=== PATIENT | female | born 1990 | race Caucasian/White ===

== ENCOUNTER 2024-08-04 12:59 | Outpatient (CLI) | payer BC, SELFPAY | END 2024-08-04 13:00 | disposition home or self-care (01) | PROVIDERS: PCP Family Medicine | DX: R10.9 Unspecified abdominal pain (principal) | CPT/HCPCS: 83690 ==

== ENCOUNTER 2025-01-03 16:09 | Emergency (ER) | payer BC, SELFPAY ==
--- OUTSIDE RECORDS SUMMARY | 2025-01-03 16:11 | XMS_ITS | Clinical Summary ---
Author Organization [facility] Address [address] [place] [address] Care Team Providers Care Securities Teller Name Role Phone Elsewhere, Pcp Primary Care Provider Unavailabl e Source Comments Patient records contain information from all sites at [facility]. For routine questions regarding patient records, call [phone] during business hours, M-F 8:00 AM - 5:00 PM Central Time. Record requests for emergency care only can be directed to [phone] at any time.[facility] Allergies Active Allergy Reactions Criticality Noted Date Comments Latex Hives (Reselect Reaction),Itching,Oth er (see comments),Rash High 08/29/2009 Prednisone Rash 07/31/2024 Pollen Extracts Other (see comments) 03/10/2017 SEASONAL ALLERGIES: RUNNY NOSE, ITCHY EYES Sulfa (Sulfonamide Antibiotics) Hives (Reselect Reaction),Rash High 03/10/2017 All SULFA DRUGS Medications * This document contains information received from the source organization and may not represent a complete record from that organization. amitriptyline (ELAVIL) 25 mg tablet Take 25 mg by mouth. 7 Active miscellaneous medical supply misc As directed. Automated home blood pressure cuff. 1 Active sertraline (Zoloft) 50 mg tablet Take 50 mg by mouth. 4 Active LORazepam (Ativan) 0.5 mg tablet Take 1 tablet (0.5 mg total) by mouth 3 (three) times a day as needed for anxiety for up to 10 days. 12 tablet 4 Active L.acid/B.animal is,bifidum/FOS (PROBIOTIC COMPLEX ORAL) daily. Active ibuprofen 200 mg tablet Take 400-800 mg by mouth every 6 (six) hours as needed. 4 Active acetaminophen (TylenoL) 325 mg tablet Take 325-650 mg by mouth every 4 (four) hours as needed. 4 Active drospirenone-et hinyl estradioL (Ocella) 3-0.03 mg per tablet Take 1 tablet by mouth daily. 4 Active Active Problems Problem Noted Date Diagnosed Date Infection Upper Respiratory 09/12/2024 Encounter For Supervision Of Normal Unspecified Trimester 08/10/2020 Overview (08/23/2020): Estimated Date of Delivery: 03/15/21 Patient's last menstrual period was 05/30/2020 (exact date). Last Tdap- 03/15/2013 Last Flu vaccine- 06/19/2020 Glucose (GTT) result- too early Allergies Allergen Reactions Latex Contact Dermatitis Sulfa (Sulfonamide Antibiotics) Hives OB History Para Term AB Living 1 0 0 0 0 0 SAB TAB Ectopic Multiple Live Births 0 0 0 0 0 # Outcome Date GA Lbr David/2nd Weight Sex Delivery Anes PTL Lv 1 Current Create lab flowsheet for OB labs- Component Latest Ref Rng & Units 07/24/2020 07/24/2020 07/24/2020 11:34 AM 11:34 AM 11:34 AM ANTIBODY SCREEN Negative Negative SPECIMEN EXPIRATION DATE/TIME 07/27/20 23:59 HEMOGLOBIN 12.0 - 16.0 g/dL 13.4 MCV 80 - 100 fL 92 PLATELET COUNT 140 - 440 thou/cu mm 194 MPV 6.5 - 11.0 fL 10.4 RUBELLA IGG ANTIBODY Positive 3.56 HEMOGLOBIN A1C SCREENING <=6.4 % 4.9 ABORH B Rh Positive HBSAG Nonreactive Nonreactive HEPATITIS C ANTIBODY Non-Reactive Non-Reactive HIV-1/HIV-2 ANTIBODY Non-Reactive Non-Reactive TREPONEMA PALLIDUM Negative Negative Past Medical History: . Date Seasonal allergies Past Surgical History: . Laterality Date WISDOM TEETH EXTRACTION No data on file. Problems (from 07/24/20 to present) No problems associated with this episode. Kailee Lamb RN.....08/10/2020 2:57 PM Migraine Headache 03/10/2017 Overview (08/23/2020): Improved on amitriptyline. Created by Conversion Replacement Utility updated for latest IMO load Created by Conversion Replacement Utility updated for latest IMO load Overview: Improved on amitriptyline. Family History Of Diseases O f The Skin And Subcutaneous Tissue 03/10/2017 Overview (08/23/2020): Father, diagnosed 2012 Irritable Bowel Syndrome With Constipation 03/10 Overview (08/23/2020): Created by Conversion Created by Conversion Immunizations Immunization Administration Dates Next Due 4vHPV (discontinued) 03/15/2013,06/29/2009,04/10 DTP 12/11/1995, 1,02/04/1991,1990 HepA Adult 01/21/2015 HepA Pediatric/Adolescent 04/10/2009 HepB, Unspecified 04/30/2003,01/28/2003,11/19/19 03 IPV 12/11/1995 Influenza, Unspecified 08/24/2015,06/25/2013,11/2011 MCV4 (Menactra)(Discontinued) 04/10/2009 MCV4, Unspecified 04/10/2009 MMR 11/18/2002,04/22/1992 MPSV4 02/07/2011 OPV 12/11/1995, 2,02/04/1991,1990 Td Preservative Free (TENIVA C, DECAVAC) 11/18/2002 Tdap 03/15/2013 influenza vaccine quad (FLUZONE/FLUARIX) (6 months and older)(PF) 06/26/2023 Family History Medical History Relation Name Comments Lupus Father Relation Name Status Comments Father Social History Tobacco Use Types Packs/Day Years Used Date Smoking Tobacco: Never Smokeless Tobacco: Never [employer] Utilities Answer Date Recorded In the past 12 months has th e QRGL, gas, oil, or water [employer] threatened to shut off services in your home? No 07/29/2024 Exercise Vital Sign Answer Date Recorde d On average, how many days pe r week do you engage in moderate to strenuous exercise (like a brisk walk)? 1 day 07/29/2024 On average, how many minutes do you engage in exercise at this level? 30 min 07/29/2024 Hunger Vital Sign Answer Date Recorded Within the past 12 months, y ou worried that your food would run out before you got the money to buy more. Never true 07/29/20 Within the past 12 months, t he food you bought just didn't last and you didn't have money to get more. Never true 07/29/2024 PRAPARE - Transportation Answer Date Re corded In the past 12 months, has l ack of transportation kept you from medical appointments or from getting medications? No 07/06 In the past 12 months, has l ack of transportation kept you from meetings, work, or from getting things needed for daily living? No 07/29/2024 Nutrition Answer Date Recorded On average, how many serving s of fruits and vegetables do you eat per day (serving size is equal to 1 cup or approximately the size of a tennis ball)? 0-2 07/29/2024 Dental Answer Date Recorded Dental: Regular Dentist Yes 07/29/20 Employment Answer Date Recorded Employment status Employed and actively working without restrictions 07/29/2024 Housing Stability Answer Date Recorded What is your living situation today? I have a [facility] to live 07/29/2024 Comments Unknown Sex and Gender Information Value Date Recorded Sex Assigned at Female 07/29/2024 7:29 PM TECHNICAL PROJECT MANAGER Legal Sex Female 9:31 PM TECHNICAL PROJECT MANAGER Gender Identity Female 07/29/2024 7:29 PM TECHNICAL PROJECT MANAGER Sexual Orientation Straight 07/29/2024 7: 29 PM TECHNICAL PROJECT MANAGER Last Filed Vital Signs Vital Sign Reading Time Taken Comments Blood Pressure 140/94 09/12/2024 5:34 PM TECHNICAL PROJECT MANAGER Pulse 71 09/12/2024 5:34 PM TECHNICAL PROJECT MANAGER Temperature 36.3 C (97.3 F) 09/12/2024 5:34 PM TECHNICAL PROJECT MANAGER Respiratory Rate 16 09/12/2024 5:34 PM TECHNICAL PROJECT MANAGER Oxygen Saturation 100% 09/12/2024 5:34 PM TECHNICAL PROJECT MANAGER Inhaled Oxygen Concentration - - Weight 83.2 kg (183 lb 6.8 oz) 07/26/2024 5:02 P M TECHNICAL PROJECT MANAGER Height 160 cm (5' 3) 09/12/2024 5:33 PM TECHNICAL PROJECT MANAGER Body Mass Index 31.48 08/23/2020 3:35 PM TECHNICAL PROJECT MANAGER Plan of Treatment Health Maintenance Due Date Last Done Comments HIV Screening 1990 Hepatitis C Screening 1990 Cervical/Vaginal Cancer Screening 04/28/2019 04/28/2016, 03/15/2013 COVID-19 Vaccine ( season) 2024 07/12/2023, 06/24/2022, 09/06/2021, Additional history exists Depression Screening (Annual PHQ-2) 09/04/2024 DTaP,Tdap,and Td Vaccines (7 - Td or Tdap) 01/18/2031 01/18/2021, 03/15/2013, 11/18/2002, Additional history exists IPV Vaccines Completed 12/11/1995, 04/1996, 04/22/1992, Additional history exists Hepatitis B Vaccines Completed 04/30/2003, 01/28/2003, 11/18/2002 HPV Vaccines Completed 03/15/2013, 10/05, 06/29/2009, Additional history exists Hepatitis A Vaccines Completed 01/21/2015, 04/10/20 09 Hepatitis B Screening Discontinued 07/24/2020 Influenza Vaccine Completed 06/10/2024, , 06/08/2022, Additional history exists Pneumococcal vaccine (0-49 years) Aged Out No longer eligible based on patient's age to complete this topic Procedures Procedure Name Priority Date/Time Associated Diagnosis Comments PATHOLOGY CIRCUS TRAIN SUPERVISOR CYTOLOGY Routine 04/28/2016 12:00 AM CDT from Last 3 Months or Most Recently Relevant to Health Maintenance Results * Pathology CIRCUS TRAIN SUPERVISOR Cytology (04/28/2016 12:00 AM CDT) 04/28/2016 Narrative [facility] - 05/13/2016 11:34 AM CDT [facility] in [address] [place] [address] Patient Name: MATTIE MEJIACheryl CAMPOS Collected: 04/28/2016 Address: City/State/Zip: [address] [facility] [place] [id number] Received: Reported: 04/29/2016 05/13/2016 Soc. Sec. #: /Age/Sex 1990 (Age: 25) F Physician(s): BRIDGET MARINO MD Copy To: [facility] [id number] [place] [address] CYTOPATHOLOGY CIRCUS TRAIN SUPERVISOR REPORT FINAL CYTOLOGIC DIAGNOSIS Pap Smear - ThinPrep: NEGATIVE FOR INTRAEPITHELIAL LESION OR MALIGNANCY SPARSE TO NO ENDOCERVICAL COMPONENT PRESENT. SATISFACTORY SPECIMEN FOR EVALUATION. Electronically Signed Out By 05/13/2016 [facility](ASCP) The Pap test is a screening procedure and, as such, is subject to both false positive and false negative results as evidenced by published data. It is not a diagnostic test and results should be interpreted in the context of the patient's history and other clinical findings. Obtaining periodic Pap tests may help to minimize the consequences of any false negatives that may occur. SPECIMEN(S) RECEIVED: Pap Smear - ThinPrep CLINICAL HISTORY: CONTROL Date of Last Menstrual Period: 03/28/2016 Hormonal History: No hormonal therapy Other Clinical Conditions: HPV TYPING REQUESTED: IF ASCUS us Lilia Marino M.D. LAB PAP COPATH ORDERABLES Fi nal Result [facility] from Last 3 Months or Most Recently Relevant to Health Maintenance Insurance [facility] Care Teams Securities Teller Relationship Specialty Start Date End Date Elsewhere, Pcp PCP - General Internal Medicine 12/29/21
--- OUTSIDE RECORDS SUMMARY | 2025-01-03 16:12 | XMS_ITS | Clinical Summary ---
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 Medications Medication Instructions Start Date Stop Date Generic Name NDC Provider LORAZEPAM 0.5 MG TABS lorazepam [id number] benjamin Monday AMOXICILLIN-POT CLAVULANATE 875-125 MG TABS amoxicillin-pot clavulanate 90283330222 benjamin Monday AMITRIPTYLINE HCL 25 MG TABS amitriptyline 52518405612 benjamin Monday DROSPIRENONE-ETHINYL ESTRADIOL 3-0.03 MG TABS drospirenone-eth inyl estradiol 41362177197 benjamin Monday CEFDINIR 300 MG CAPS cefdinir 5309365918 0 Sondra Monday HYDROXYZINE HCL 25 MG TABS hydroxyzine hcl 93984200358 Sondra Monday SERTRALINE HCL 50 MG TABS sertraline 80561349441 benjamin Monday MEDROXYPROGESTERONE ACETATE 10 MG TABS medroxyprogesterone 87061671 [id number] Sonrda Monday norethindrone-eth. estradiol-iron 1-20 (5)/1-30(7)/1mg-35mc g(9) tablet norethindrone-e. estr adiol-iron [id number] Sondra Kan MD [id number] C 1 % SOLN neomycin-polymyx in-h c [phone] Sondra Monday Medications Administered No information available. Allergies, Adverse Reactions, Alerts No information available. Results Date Name Value Unit Range Flag Description Replaced Document: (P) COMPR EHENSIVE METABOLIC PANEL, CBC (INCLUDES DIFF/PLT), ... TSH * u[iU]/mL Thyrotropin [Units/volume] in Serum or Plasma FRT4 * FREE T4 BASOPHIL % 0.2 % N Basophils/ 100 leukocytes in Blood by Manual count EOSINOPHIL % 0.6 % N Eosinoph ils/100 leukocytes in Blood by Manual count MONOCYTE % 13.4 % N Monocytes/ 100 leukocytes in Blood by Automated count LYMPHS % 32.0 % N Lymphocytes/ 100 leukocytes in Blood by Automated count PMN % 53.8 % N Neutrophils/1 00 leukocytes in Blood by Automated count BASOPH COUNT 10 CELLS/UL 10*3/mm3 0-200 N Basophils [#/vol ume] in Blood by Manual count EOS COUNT 29 CELLS/UL 10*3/mm3 15-500 N eosinophil count , blood MONOSCT AUTO 643 CELLS/UL 10*3/uL 200-950 N Monocytes [#/vol ume] in Blood by Automated count LYMPH COUNT 1536 CELLS/UL 10*3/mm3 850-3900 N lymphocyte count , blood NEUTRO COUNT 2582 CELLS/UL 10*3/mm3 2923-5525 N neutrophil count , blood MPV 10.8 fL 7.5-12.5 N Platelet imtiaz n volume [Entitic volume] in Blood by Gina PLATELETS 213 THOUSAND/U L 10*3/mm3 140-400 N Platelets [#/vol ume] in Blood by Automated count RDW 11.5 % 11.0-15.0 N Erythrocyte distribution width [Ratio] by Automated count MCHC 34.0 G/DL 32.0-36.0 N MCHC [Mass/ volume] by Automated count MCH 31.2 pg 27.0-33.0 N MCH [Entiti c mass] by Automated count MCV 91.9 fL 80.0-100.0 N MCV [Entit ic volume] by Automated count HCT 40.9 % 35.0-45.0 N Hematocrit [Volume Fraction] of Blood by Automated count HGB 13.9 g/dL 11.7-15.5 N Hemoglobin [Mass/volume] in Blood RBC 4.45 MILLION/UL 10*6/mm3 3.80-5.10 N Erythrocytes [#/volume] in Blood by Automated count WBC 4.8 THOUSAND/U L 10*3/mm3 3.8-10.8 N Leukocytes [#/volume] in Blood by Automated count SGPT (ALT) * U/L Alanine aminotransferase [Enzymatic activity/volume] in Serum or Plasma SGOT (AST) * U/L Aspartate aminotransferase [Enzymatic activity/volume] in Serum or Plasma ALK PHOS * U/L Alkaline geronimo sphatase [Enzymatic activity/volume] in Blood BILI TOTAL * mg/dL Bilirubin. total [Mass/volume] in Serum or Plasma A/G RATIO * Albumin/Maribell bulin [Mass Ratio] in Serum or Plasma GLOBULIN TOT * g/dL Globulin [Mass/volume] in Serum ALBUMIN * g/dL Albumin [Mass/volume] in Serum or Plasma PROTEIN, TOT * g/dL Protein [Mass/volume] in Serum or Plasma CA * mg/dL Calcium [Mass/volume] in Serum or Plasma CO2 TOTAL * mmol/L carbon diox thierry, serum, total CHLORIDE * mmol/L Chloride [Moles/volume] in Serum or Plasma POTASSIUM * mmol/L Potassium [Moles/volume] in Serum or Plasma SODIUM * mmol/L Sodium [Moles/volume] in Serum or Plasma BUN/CREAT * Urea nitrogen/Creatinine [Mass Ratio] in Serum or Plasma [id number] * GE use only - for [employer] import when terms are not otherwise specified CREATININE * mg/dL Creatinine [Mass/volume] in Serum or Plasma BUN * mg/dL Urea nitrogen [Mass/volume] in Serum or Plasma GLUCOSE SER * mg/dL Glucose [Mass/volume] in Serum or Plasma Telemedicine: Telemedicine V isit FLUP post MRI and EEG pt sched fax MEDS REVIEW Done Documenta tion of current medications (procedure) Plan of Care Type Date Detail Pending order Follow up Pending order Follow up Pending order Follow up Pending order EEG Ambulatory ( 50hr) Pending order Follow up CHELSEA af ter testing Pending order EEG (40min) Pending order MRI-Brain Seizur e Protocol W/WO Pending order CBC with Diff/Pl atelet Pending order Comp Metabolic P dann (14) Pending order T4 Free Direct Pending order TSH Procedures Code Procedure Name Date Entry Date 20840 EEG Ambulatory (50hr) 2 [facility]-[id number] Documentation of current medicatio ns CPT-52212 EEG (AWAKE/DROWSY) (END) 202 01/04/12 [address] [place] [address] EEG (40min) [id number] MRI-Brain Seizure Protocol W/WO 1 CPT-L2816J ProHance Gadolinium- based MR Contrast - 15 ml vial CPT-37201 MRI Brain W/WO ORDERS CBC with Diff/Platelet 10/02 ORDERS Comp Metabolic Panel (14) 20 28/09/28 ORDERS T4 Free Direct ORDERS TSH Vital Signs Date Name Value Unit Description Weight Measured 160 [lb_av] weight E& M Weight Measured 160 [lb_av] weight E& M BP Diastolic 100 mm[Hg] blood pressu re, diastolic BP Systolic 124 mm[Hg] blood pressur e, systolic Heart Rate 90 /min pulse rate Immunizations No information available. Advance Directives No information available.
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
--- OUTSIDE RECORDS SUMMARY | 2025-01-03 16:12 | XMS_ITS | Data Portability ---
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 Name Role Phone ZELDAANTONIO ZUÑIGAISTIN Primary Care Provider [phone] Assessment Encounter Date Assessment Date Assessment LastModified by Organization Details LastModified Time 03/26/2024 03/26/2024 I spent a total of 45 minutes providing care for this patient including: preparing to see the patient, obtaining a medical history, completing a medically appropriate physical exam, completing documentation of visit information and plans in the EMR, counseling the patient and/or caregiver regarding her diagnosis, treatment options and follow up plans, as well as any necessary communication of subsequent test results to the patient, , , [email or web address] Not available 03/27/2024 11:37:46 08/06/2024 08/06/2024 This service was provided using telemedicine including synchronous audio and/or video approved technology. The patient verbally Consents to telemedicine services, virtual check-ins and evisits. Telemedicine consultation via Synchronous Audio and Video Call. The patient is located in their home-10 when receiving health services through telecommunication technology. I spent a total of 45 minutes providing care for this patient including: preparing to see the patient, obtaining a medical history, completing a medically appropriate physical exam, completing documentation of visit information and plans in the EMR, counseling the patient and/or caregiver regarding her diagnosis, treatment options and follow up plans, as well as any necessary communication of subsequent test results to the patient, reviewing test results, reviewing medical records, reviewing imaging Assessment and Plan for this visit include the following: [email or web address] Not available 08/08/2024 17:07:11 Plan of Treatment Reminders Order Date Submit Date Provider Last Modified By Organization Details Last Modified Time Details Appointments None recorded. Lab FSH (follicle-s timulating hormone), serum 2023 [facility], [address], [address], [place], [address], 4 09:50:13 estradiol, serum 2023 [facility], [address], [address], [place], [address], 4 09:50:14 TSH, serum or plasma 2023 [facility], [address], [address], [place], [address], 4 09:50:15 prolactin, serum 2023 [facility], [address], [address], [place], [address], 4 09:50:15 lh (luteinizin g hormone), serum 2023 [facility], [address], [address], [place], [address], 4 09:50:13 anti-nieto santi hormone (amh), serum 2023 024 [facility], [address], [address], [place], [address], 4 09:40:48 hemoglobin A1c, QN, blood 2023 [facility], [address], [address], [place], [address], 4 09:50:11 test, urine [address] [email or web address] [facility], [address] [place] [address], [address], [place], [address], 17:12:15 Referral None recorded. Procedures None recorded. Surgeries None recorded. Imaging None recorded. Medication Orders Ocella 3 mg-0.03 mg tablet 2023 [facility] #[id number], [address], [place], [phone], 11:44:35 Provera 10 mg tablet 2023 [facility] #[id number], [address], [place], [phone], 12:43:54 Patient TargetsNo targets recorded. Patient InstructionsNo instructions recorded. Reason for Referral None Reported. Results Created Date Observation Date Name Description Value Unit Range Abnormal Flag Note LastModifiedBy Organization Detail LastModifiedTime 03/26/20 24 03/26/2024 pregn sean test, urine Unknown Analyte negati ve Not Available [email or web address] ed en [address], [place], [address], 03/26/2024 16:24:31 03/26/20 24 03/26/2024 pregn sean test, urine Unknown Analyte negati ve Not Available [id number] ed en [address], [place], [address], 03/26/2024 16:24:31 07/15/20 24 07/15/2024 ANTI- MULLE NAZARIO HORMO NE AMH anti-mulleri an hormone 7.400 NG/mL 0.580- 8.100 Not Available [address], [place], [address], 07/16/2024 09:40:48 07/15/20 24 07/15/2024 HEMOG LOBIN A1C estimated average glucose 100 mg/dL <117 Not Available [address], [place], [address], 07/16/2024 09:50:11 07/15/20 24 07/15/2024 HEMOG LOBIN A1C hemoglobin A1C 5.1 % <5.7 Aby l <5.7% Predi abete s 5.7-6 .4% Diabe sonya 6.5% or highe r Note: Adopt ed from ADA conse nsus guide lines . Not Available [address], [place], [address], 07/16/2024 09:50:11 07/15/20 24 07/15/2024 FOLLI ELVIS STIMU LATIN G HORMO NE FSH 6.7 mIU/m L 19 years and older : Folli cular phase : 3.5-1 2.5 mIU/m L Ovula tion phase : 4.7-2 1.5 mIU/m L Lutea l phase : 1.7-7 .7 mIU/m L Postm enopa use: 25.8- 134.8 mIU/m L Not Available [address], [place], [address], 07/16/2024 09:50:13 07/15/20 24 07/15/2024 LUTEI NIZIN G HORMO NE luteinizing hormone 9.7 mIU/m L FEMAL E: Age 0 - 6 mo: <0.1- 8.2 mIU/m L 6 mo - 11 years : <0.1- 1.3 mIU/m L 11 - 14 years : <0.1- 10 mIU/m L 14 - 19 years : 0.4-2 5 mIU/m L 19 years and older : Folli cular Phase : 2.4-1 2.6 mIU/m L Ovula tion Phase : 14.0- 95.6 mIU/m L Lutea l Phase : 1.0-1 1.4 mIU/m L Postm enopa usal: 7.7-5 8.5 mIU/m L Not Available [address], [place], [address], 07/16/2024 09:50:13 07/15/20 24 07/15/2024 ESTRA DIOL estradiol 36 pg/mL Healt hy Men: 11.3- 43.2 pg/mL Healt hy Postm enopa usal Women : Postm enopa use: <5-13 8 pg/mL Healt hy Pregn ant Women : 1st trime ster: 154-3 243 pg/mL 2nd trime ster: 1561- 24112 pg/mL 3rd trime ster: 8525- >3000 0 pg/mL Healt hy Women Cycle Phase : Folli cular : 30.9- 90.4 pg/mL Ovula tion: 60.4- 533 pg/mL Lutea l: 60.4- 232 pg/mL Healt hy Women Cycle Sub-P hase: Early Folli cular : 20.5- 62.8 pg/mL Inter media te Folli cular : 26-79 .8 pg/mL Late Folli cular : 49.5- 233 pg/mL Ovula tion: 60.4- 602 pg/mL Early Lutea l: 51.1- 179 pg/mL Inter media te Lutea l: 66.5- 305 pg/mL Late Lutea l: 30.2- 222 pg/mL Not Available [address], [place], [address], 07/16/2024 09:50:14 07/15/20 24 07/15/2024 PROLA CTIN LEVEL prolactin 10 NG/mL 5-23 Not Available [address], [place], [address], 07/16/2024 09:50:15 07/15/20 24 07/15/2024 TSH WITH REFLE X TO FREE T4 TSH 2.30 uIU/m L 0.30-4 .20 Not Available [address], [place], [address], 07/16/2024 09:50:15 07/19/20 24 07/19/2024 pregn sean test, urine Unknown Analyte negati ve Not Available [id number]_ [place] marcus [address] [facility] [address], [place], [address], 07/19/2024 10:55:11 07/19/20 24 07/19/2024 pregn sean test, urine Unknown Analyte negati ve Not Available [id number]_ wa marcus Benavidez [facility] [address], [place], [address], 07/19/2024 10:55:11 Result Notes None recorded. Problems Name Problem SNOMED Code Status Onset Date Resolution Date Notes Provider Name and Address Organization Details Recorded Time Migraine 64305976 Active 024 Alissa baldwin, [place] - [employer] 4 15:27:39 Anxiety 67892401 Active 024 Alissa Almanzar null, [place] - [employer] 4 15:27:48 Polycystic ovary syndrome 677826518 Active 024 [place] [address], [place], [address] [place] [address] - [employer] 4 09:43:49 Problem Notes None recorded. Procedures Surgical History Date Name Laterality Status Provider Name and Address Organization Details Recorded Time 11/01/19 24 Hysteroscopy completed Alissa Almanzar [facility] [employer] 03/26/2024 15:31:29 09/04/19 24 Dilation and Curettage completed Katina Dominguez (JANA[facility] [place] [facility] 07/18/2024 10:37:00 08/04/20 23 Date of Last Colonoscopy completed Alissa Almanzar [facility] [employer] 03/26/2024 15:24:56 07/22/20 23 Date of Last Pap Smear completed Alissa Almanzar [place] [employer] 03/26/2024 15:24:56 02/16/20 21 spontaneous unassisted delivery, medical personnel present completed Alissa Almanzar [place] [facility] [employer] 03/26/2024 15:30:57 Tonsillectomy completed Alissaroxy Contech [place] [employer] 03/26/2024 15:24:57 Colonoscopy completed Alissa Katyeich [facility] [employer] 03/26/2024 15:24:57 Imaging Results None recorded. Procedure Notes None recorded. Medical Equipment None Reported. Allergies Allergen ID Allergen Name Allergen Category Reaction Reaction Severity Criticality Documentation Date Start Date Code Code System Note Provider Name and Address Organization Details Recorded Time 894383 Substance with sulfonami de structure and antibacte rial mechanism of action (substanc e) medicatio n rash Not available Not available 03/26/2024 26667 8003 SNOMED Alissa Oestreich [place], [place] - [place] [employer] 4 15:24:56 916840 prednison e medicatio n rash Not available Not available 03/26/2024 8640 RxNorm Alissa Oestreich null, [facility] [employer] 4 15:24:56 706088 sulfameth oxazole medicatio n rash Not available Not available 03/26/2024 10557 RxNorm Alissa Oestreich null, [place] [employer] 4 15:24:56 773570 latex environme nt,medica tion rash moderate Not available 07/18/2024 75580 91 RxNorm Katina Dominguez (TERMED) [place], [place] [employer] 4 10:36:47 Medications Name Sig Start Date Stop Date Status Note LastModified by Organization Details LastModified Time medroxyproge sterone 10 mg tablet TAKE 1 TABLET BY MOUTH EVERY DAY FOR 10 DAYS 07/15 completed Not Available Not Available Not Available neomycin-tom ymyxin-hydro vandana 3.5 mg/mL-10,000 unit/mL-1 % ear solution INSTILL 3 DROPS INTO LEFT EAR FOUR TIMES DAILY FOR 5 DAYS 03/26 completed Not Available Not Available Not Available norethindron e-eth. estradiol-ir on -20 (5)/1-30(7)/ 1mg-35mcg(9) tablet TAKE 1 TABLET BY MOUTH EVERY DAY 03/26 completed Not Available Not Available Not Available amitriptylin e 25 mg tablet active Not Available Not Available Not Available lorazepam 0.5 mg tablet 08/03 completed Not Available Not Available Not Available hydroxyzine HCl 25 mg tablet 08/03 completed Not Available Not Available Not Available cefdinir 300 mg capsule 03/26 completed Not Available Not Available Not Available sertraline 50 mg tablet active Not Available Not Available Not Available drospirenone 3 mg-ethinyl estradiol 0.03 mg tablet Take 1 tablet every day by oral route. 08/03 completed Not Available Not Available Not Available amoxicillin 875 mg-potassium clavulanate 125 mg tablet TAKE 1 TABLET BY MOUTH TWICE DAILY 03/26 completed Not Available Not Available Not Available Probiotic active Not Available Not Hannah ilable Not Available Vitals Date Recorded Body weight Body mass index (BMI) Body height Systolic blood pressure Diastolic blood pressure Provider Name and Address Organization Details Last Updated DateTime 03/26/2024 59558.39 g 29.9 kg/m2 160.02 cm 138 mm[Hg] 78 mm[Hg] Alissa Almanzar [facility] [employer] 15:26:51 Date Recorded Body height Body mass index (BMI) Body weight Systolic blood pressure Diastolic blood pressure Provider Name and Address Organization Details Last Updated DateTime 07/15/2024 160.02 cm 29.2 kg/m2 76507.02 g 130 mm[Hg] 92 mm[Hg] Katina Dominguez (TERMED) [facility] [employer] 12:44:50 Date Recorded Body height Provider Name an d Address Organization Details Last Updated DateTime 08/06/2024 160.02 cm Alissa Almanzar [facility] OB/G YN 08/06/2024 09:01:04 Social History Question Answer Notes LastModified by Organizat ion Details LastModified Time Tobacco Smoking Status Never Smoker Alissa baldwin [facility] [employer] 03/26/2024 15:24:57 Do You Have An Advance Directive? No Information not available 07/18/2024 What Is Your Level Of Alcohol Consumption? Occasional Information not available 03/26/2024 What Is Your Level Of Caffeine Consumption? Moderate Information not available 03/26/2024 Are You Currently Employed? Yes Information not available 03/26/2024 What Type Of Diet Are You Following? REGULAR Information not available 03/26/2024 Do You Or Have You Ever Used E-cigarettes Or Vape? Never Used Electronic Cigarettes Information not available 07/18/2024 What Is Your Occupation? [email or web address] Information not available 07/12/2024 Country Of [facility] Informat ion not available 03/26/2024 History Of Domestic Violence No Information no t available 03/26/2024 Have You Ever Been Or Currently Are A Victim Of Sexual Abuse? No Information not available 03/26/2024 Have You Ever Been Or Currently Are A Victim Of Physical Abuse? No Information not available 03/26/2024 What Is Your Relationship Status? Information not available 03/26/2024 Do You Use Any Illicit Or Recreational Drugs? No Information not available 03/26/2024 Do You Or Have You Ever Used Any Other Forms Of Tobacco Or Nicotine? No Information not available 03/26/2024 Sex: Female Functional Status Question Answer Note LastModified by Organization D etails LastModified Time What is your exercise level? None Information not available 03/26/2024 Mental Status None recorded. Family History Relationship Description Onset Age of this Age Resolved Age Notes LastModified by Organization Details LastModified Time Mother No current problems or disability coestreich Not available 03/05 15:24:56 Brother No current problems or disability coestreich Not available 03/05 15:24:56 Brother Hypertensive disorder pt. added direct ly (07/12) [email or web address] Not available 07/12/2024 21:19:40 Father No current problems or disability coestreich Not available 03/05 15:24:56 Father Hypertensive disorder pt. added direct ly (07/12) [email or web address] Not available 07/12/2024 21:19:40 Paternal Grandfather Hypertensive disorder pt. added direct ly (07/12) [email or web address] Not available 07/12/2024 21:19:40 Medical History Condition Response Dermatology-Acne Y Hematology- Blood Transfusion Y Psych- Anxiety Disorder Y GI- Irritable Bowel Syndrome Y Neurology- Headaches/Migraines Y ID- Usual childhood diseases- Chicken Po x Y Ortho-Chronic Back Pain Y Gynecological History Statement/Question Response History of Endometriosis N History of Abnormal PAP N History of Recurrent Ovarian Cysts N Total lifetime partners Less than 5 Date of Last Mammogram Date of LMP 07/11/2024 Menstrual Cycle Length (days) Date of Last Diabetes Screening 07/15/20 24 14 History of Infertility N Sexually Active Y Age at Menarche: 13 Date of Last Colonoscopy 08/04/2023 Age at first intercourse 22 History of Sexually Transmitted Infectio n N Y HPV Vaccine Complete Current Control Method None History of Fibroids N Date of Last Pap Smear 07/22/2023 Date of Last Cholesterol Screening 07/15 Obstetrics History GPAL:G 1 P 0 1 0 1 Type Value Multiple Births 0 Full Term 0 Induced 0 Spontaneous 0 Premature 1 Living 1 Ectopics 0 Total 1 Immunizations Vaccine Type Date Status Note Provider Nam e and Address Organization Details Recorded Time COVID-19, mRNA, LNP-S, PF, 30 mcg/0.3 mL dose 09/06/2021 completed Katina Correaess (TERMED) [place], [place] [employer] 07/15/2024 12:37:00 COVID-19, mRNA, LNP-S, PF, 30 mcg/0.3 mL dose 12/09/2020 completed Katina Kregness (TERMED) null, [facility] [employer] 07/15/2024 12:37:00 COVID-19, mRNA, LNP-S, PF, 30 mcg/0.3 mL dose 12/30/2020 completed Katina Kregness (TERMED) [place], [place] [employer] 07/15/2024 12:37:00 COVID-19, mRNA, LNP-S, bivalent, PF, 30 mcg/0.3 mL dose 06/24/2022 completed Katina Kregness (TERMED) [place] [employer] 07/15/2024 12:37:00 COVID-19, mRNA, LNP-S, PF, 50 mcg/0.5 mL 07/12/2023 completed Katina Kregness (TERMED) [place], [place] [employer] 07/15/2024 12:37:00 Tdap 01/18/2021 completed Katina Kregness (TERMED) [place], [place] [employer] 07/15/2024 12:37:00 Influenza, split virus, quadrivalent, PF 05/24/2021 completed Katina Kregness (TERMED) [place], [place] [employer] 07/15/2024 12:37:00 Influenza, split virus, quadrivalent, PF 06/08/2022 completed Katina Kregness (TERMED) null, [place] - [employer] 07/15/2024 12:37:00 Influenza, split virus, quadrivalent, PF 06/19/2020 completed Katina Kregness (TERMED) [place] [employer] 07/15/2024 12:37:00 Influenza, split virus, quadrivalent, PF 06/26/2023 completed Katina Kregness (TERMED) [place] [employer] 07/15/2024 12:37:00 Past Encounters Encounter ID Performer Location Encounter Start Date Encounter Closed Date Diagnosis/Indication Diagnosis SNOMED-CT Code Diagnosis ICD10 Code Diagnosis Note [id number] JAN TOSCANO MD [id number] T_[address] [place] [address] 03/26/2024 15:20:15 03/26/2024 17:03:14 Secondary amenorrhea 992058325 N91.1 discussed with pt, irregular menses more of a concern to me. offered testostero ne, but will defer pending further workup for periodsdis cussed options of restarting POP vs. progestero ne withdrawl bleed, hoping for cycle reset vs. further workup with labs and imagingpt agrees to progestero ne withdrawl bleed and see if her cycles reset. UPT negf/u with Dr. Bernard following progestero ne withdrawl Reduced libido 9560656 R 68.82 discussed multifacto rial. will try progestero ne withdrawl and see if regular cycles resumeenco uraged individual , couples, and sex therapy. briefly discussed pelvic floor PT and pt will consider [id number] AAKASH DONIS MD [id number] [place] DONISA [address] [address] [place] [address] 07/15/2024 12:35:11 07/15/2024 13:28:06 Irregular periods 59043066 N92.6 Patient has been on oral contracept namita most of her life so it is hard to determine what her baseline menstrual frequency is. She has had several issues that raise concerns over the intactness of the hypothalam ic pituitary ovarian and uterine access. With a significan t hemorrhage could have caused issues from a pituitary standpoint what sounds like a placenta accreta possibly with a significan t D&C and a follow-up hysterosco py D&C after delivery could lead to significan t scarring within her uterus.Whe re to get some blood today she is cycle day 5 or thinking since her cycles are so irregular ideally should function as a day 3 so we can take a look at her FSH LH ratio get an AMH and get a real handle on her ovulatory status from a hormonal standpoint then move forward with a sonohyster ogram to take a look at any's potential scarring within the uterine cavity that could lead to menstrual irregulari ties and to try to be able to answer whether is a realistic option for her going forward.It sounds like this whole experience has been rather traumatic for her has some concerns of her ability to get through the ultrasound she is going to bring her but we will try to do everything we can to make her more comfortabl e Disclaimer : This note may contain dictation using voice recognitio n software. As a result, there may be errors that have gone undetected . Please consider this when interpreti ng informatio n found in this note. [id number] AAKASH DONIS MD [id number] Seth_TAYLOR NKA [address] [address] [place] [address] 07/19/2024 10:40:36 07/19/2024 12:16:26 Polycystic ovary syndrome 491582917 E28.2 Long discussion today the with the couple. She obviously has and meets criteria for PCOS did have the string of pearls parents has menstrual irregulari ties and some signs of elevated androgens her laboratory evaluation supports that with an elevated AMH and of left FSH LH ratio. Talked about short-term and long-term implicatio ns of polycystic ovarian syndrome Prashanth conception as well as implicatio ns going forward with increased risk of lipid issues hypertensi on and even seizure disorders as she matures. Have settled on use of oral contracept stu this time to suppress ovarian androgens talked about diet and exercise as a hallmark of the disease.Di scussion also centered on the uterine/pl acental issues from her last and safety issues and started going forward again. Fortunatel y we do not have complete records. Discharge summary does not raise the question of an accreta pathology does. We discussed the mechanisms of how placenta accreta occurs if that in fact is the case she does have an increased likelihood that it could potentiall y happen again but there is no way to truly predict that at this point. We did discuss the increased surveillan ce that she would have both from hypertensi on and accreta standpoint through her next . Disclaimer : This note may contain dictation using voice recognitio n software. As a result, there may be errors that have gone undetected . Please consider this when interpreti ng informatio n found in this note. [id number] SAMARIA BERNARD DO [id number] T_[place] [address] [facility] [address] [place] [address] 08/06/2024 08:58:15 08/06/2024 10:08:29 Polycystic ovary syndrome 550139551 E28.2 Patient with history of oligomenor donna, hirsutism, and polycystic ovaries noted on prior transvagin al ultrasound (diagnosti c per [place] Consensus Criteria for PCOS)- Diagnosis of and health issues associated with PCOS including anovulatio n and irregular menses, increased risk of endometria l hyperplasi a, increased risk of DM/hyperli pidemia, infertilit y reviewed with patient at length.- Reviewed recent labs with pt at length including TSH, A1c, Lipid panel, Prolactin, AMH, LH/FSH, estradiol. UPT {{negative * declined }}.- Counseled on importance of cntinued healthy diet and exercise and discussed that as little as 5% weight loss may allow for improved ovulation and regulate cycles. Recommend 150 minutes moderate intensity exercise per week. Can consider nutritioni st referral further dietary guidance- Pt unsure desires to be again after complicati ons with prior . Considerin g surrogacy with IVF. Hormonal treatment options including OCPs and progestins discussed as no current desire for in order to prevent endometria l hyperplasi a and regulate cycles. Also Reviewed possible use of OCPs or spironolac tone for hirsutism. Discussed risks of OCP especially in setting of age and recent BP. Reviewed alternativ e of Rx Provera x10 days discussed to stimulate withdrawal bleed if not having regular cycles.- Counseled on possible risks noted in recent literature with use of Metformin use with PCOS, as well as possible beneficial outcome of decreased circulatin g androgen levels and insulin-se nsitizing benefits. As A1c WNL, will hold on use at this time.- Pt will consider options and monitor cycles at this time. Plan to review at annual exam. Past pregn sean history of pre-eclampsia [id number] 01204 Z87.59 Notes hx of preE and delivery in first . Because of this, does not believe she would like to be again. Health Concerns Section Related Observation LastModified by Organization Detai ls LastModified Time None Recorded Concern Status LastModified by Organization Details LastModified Time None Recorded Advance Directives Directive N: Payers Encounter Date Sequence Insurance Name Policy Number Policy Smith Covered Member ID Smith Member ID Guarantor Name 03/26/2024 1 [place] [employer] [place] [id number] Abelardoisidro Cole [id number] Abelardo Elvis 07/15/2024 1 [place] [employer] [id number] Abelardo Radha Joshi'Chandler [id number] Abelardo Elvis 07/19/2024 1 [place] [employer] [place]) [id number] Abelardo Radha Joshi'Chandler [id number] Abelardo Elvis 08/06/2024 1 [place] [employer] ([employer]) [id number] Abelardo J Adi'Chandler [id number] Abelardo Elvis Notes Date Note Type Note Provider Name and Address Organization Details Recorded Time 4 text/html 33 yo new pt presents for hormone concerns. Patient feels like her hormones are non-existent and her periods have been irregular since October 2023. 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 . 36wks. induced for pre-e at 36wksPP hemorrhagetold she placenta accreta postpartumhysteroscopy and D&C in 10/28advised no more kids- 2 opinions due to scarring from accreta and D&C periods after Jasbir:first menses 6-8wks following delivery, told period, now wondering if ? PP bleed/issues from accretano menses then for 2 years breastfed and pill until daughter was age 2periods regular prior to . was on POP leading up to . not a RANJANA candidate with migraine hxdidn't love POP- libido issues since hysteroscopy. started period day of procedure. was on POP at time of procedure. no menses following hysteroscopy for 2mo on POP. stopped POP in January advised by MD due to no menses. Aura ring for cycle tracking Last normal cycle. 01/15/24-02/14- 32d cycle bled for a day. LMP 02/15/24, and no menses since. currently day 40no concerns for . abstinence. currently in sex therapy with partner. libido issues and states that sex is painful acne in control. no hirsutismno weight gain, no VMsx+ vaginal drynessmom with hx of fibroidspainful intercourseno pelvic pain hormone panel through [facility], normal. 02/22/24, labs done on day 7 of cycleestradiol 50FSH 5.8prolactin 6.21tsh 2.31u/s following procedure normalD&C path- scant amount of inactive anxiety filled off of POP. wanted to get off because on since a teen. no libido or sex drive on POPdeclines IUDdesires non-hormonal contraception concerned about hormone issues with issues with libido and irregular menses normal pelvic exam in Nov with pcp MARIA ESTHER POPE PA-C [id number] [facility],[address], [place], [address], [place] [facility] [employer] 03/27/2024 11:37:51 4 text/html Pt presents following up from appt with Maria Esther villagran 03/26/24. They discussed hormonal changes since having her daughter February of 2021. During her she had preE and had a PP hemorrhage. 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 She has seen multiple other doctors, including her PCP who was her OB during her with her daughter, and has gotten various different opinions saying she either can have more kids or that she cannot. Her periods are also very irregular; she was prescribed provera by Maria Esther on 03/26, she got her period, but they are still irregular. She saw her PCP this morning and she recommends testosterone and hormonal testing, but wanted to see you first if anything else is desired to be tested. jk[place] [id number] [facility],[address], [place], [address], [facility] HAND CIGAR MAKER 07/15/2024 13:43:10 4 text/html Patient with multiple issues regarding fertility safety of etc. including history of previous severe preeclampsia history of potential placenta accreta and polycystic ovarian syndrome. Will go over some laboratory evaluation today also ideally we would attempt a sonohysterogram to be able to assess the status of her endometrial cavity she was noted to have previous adhesions on hysteroscopy in the past unfortunately we are unable to perform [place] [id number] [facility],[address], [place], [address], [facility] [employer] CIG[employer] 09/16/2024 17:53:35 4 text/html Telemedicine HPI UEHRCReported bypatient.Telehealth visit for:problem Modality:Unified Secure Emperatriz Patient Information Verified:Patient Name Abelardo OneilVerified; Patient 90Verified; Patient Call back number [phone] Verified Consent:The patient was given an option to have a telehealth appointment using audio only or video and they chose audio with video. I verified the identity and location of the patient. I identified myself by name, location and professional credentials. The patient understood that they could stop the appointment at any time. I verified that the patient was comfortable using the technology to communicate with me. Patient present today to discuss PCOS.Patient was recently diagnosed with PCOS and would like to discuss this and next steps; Alissa Jimenez/SECOND RIDE FARE COLLECTOR Has discussed potential for surrogacy, but not sure that she wants another naturally due to complications with prior . Reports history of Preeclampsia in prior with PTD at 36 weeks due to PreE. Did have PPH and required blood transfusion. Notes [place] [address] [facility],[address], [place], [address], [place] [facility] [employer] 08/08/2024 17:20:53 OBGyn Episode Ob Episode Information Episode Created Date Number of Fetuses Patient Bloodtype Patient rh Status Prepregnancy Weight lbs Domestic Partner Domestic Partner Phone Father Name Financial Accounting Analyst Status 03/26/20 24 1 CLOSED Fetus Data First Name Last Name Admitted to NICU Weight (g) Sex Living Outcome Pediatric Complications Fetus ID Race Codes Race Delivery Type F Prematur e [id number] Nakul Calculation Initial Nakul Date Initial Exam Date Initial Exam Provider Initial Ultrasound Date Last Menstrual Period Date Ultra Sound Weeks Gestation 0 Eighteen To Twenty Week Nakul Update Ultra Sound Date Fundal Height At Umbil Quickening Date Ultra Sound Latest Weeks Gestation Final Nakul Confirmed By Final Nakul Confirmed Date Final Nakul Date Ultra Sound Latest Days Gestation 0 0 Menstrual History Last Menstrual Date Menses Monthly On Bcp Conception Prior Menses Frequency Hcg Plus Date Menarche Onset Age Delivery Information Delivery Date Delivery Type Labor Anesthesia Weeks Gestation Incision Type Labor Labor Length Hrs Delivered By Post Complications Tubal Sterilization Discharge Date Comments 1 Discharge Information Feeding Method Contraceptive Method Maternal HG B and HCT Levels
--- OUTSIDE RECORDS SUMMARY | 2025-01-03 16:12 | XMS_ITS | Patient Health Record ---
Author Organization [facility] Address [address] [place] [address] Care Team Providers Care Chief Of Party Name Role Phone Needed, Needed Primary Care Provider STEFANY Barakat [phone] Reason For Referral No Information Encounters Encounter Location Date Provider Diagnosis [facility] [address] [place] [address] 02/14/2024 STEFANY PHILLIPS Plan Of Treatment No Information
[2025-01-03 16:23] VITALS: BP 155/96; PULSE 95; RESP 18; TEMP 36.5; O2SAT 100; BMI 30.2
--- NOTE | 2025-01-03 16:40 | ED.GENADULT ---
HPI - General Adult General Chief complaint: Unspecified Complaint, Adult Stated complaint: carbon monoxide exposure Time Seen by Provider: 01/03/25 16:29 Source: patient Mode of arrival: ambulatory Limitations: no limitations History of Present Illness HPI narrative: 34-year-old female presenting today feeling slightly lightheaded and nauseated. 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 She felt that her room was hazy and had a strong odor. She felt fine when she went into work in approximately 30 minutes after being in the room she started having the sensation of being slightly lightheaded and nauseated. She has not vomited. She describes lightheadedness as she just ran really far in no her head feels light. She denies vertiginous symptoms. She denies recent illness. Patient is on control, denies . Denies any other symptoms such as chest pain, abdominal pain, urinary symptoms. She spoke to the nurse at school who has told her she should come to the emergency room for evaluation and to make sure she did not have carbon monoxide poisoning. She was also told by the school nurse that she had a fever at 99.6. Patient has a history of migraine headaches depression. She is on amitriptyline, sertraline and oral control. Related Data Home Medications ?Medication ?Instructions ?Recorded ?Confirmed amitriptyline 25 mg tablet 25 mg PO QDAY 01/05/24 01/03/25 sertraline 25 mg tablet 25 mg PO QDAY 01/05/24 01/03/25 norethindrone-eth. estradiol-iron 1 tab PO DAILY 01/23/24 01/03/25 1-20 (5)/1-30(7)/1mg-35mcg(9) tablet Allergies Allergy/AdvReac Type Severity Reaction Status Date / Time Sulfa (Sulfonamide Allergy Severe Hives Verified 01/03/25 16:22 Antibiotics) latex Allergy Unknown Verified 01/03/25 16:22 Review of Systems Status of ROS: Reports: 10 or more systems reviewed and unremarkable except as noted in History and below [facility] Social History Non-prescribed substance use: denies use Exam Narrative: Exam Narrative: Well-nourished well-developed patient in no acute distress. Alert and oriented. Answers questions appropriately. Mood and affect are appropriate. Thoughts are goal oriented and rational. No tangential or magical thinking noted. Patient speaks in full sentences without needing to catch her breath. Speech is not slurred or pressured. Patient does not appear ill or toxic. HEENT: Normocephalic atraumatic. Pupils are equally round reactive to light. Extraocular muscles are intact. Conjunctivae are moist without any icterus noted. Moist mucous membranes. Posterior pharynx is normal. Neck is soft without any masses. Cardiovascular: Heart is regular rate and rhythm S1 and S2 are present without any murmurs. Lungs: Clear to auscultation bilaterally no wheezes rhonchi or rales are appreciated. Patient takes deep breaths without any discomfort. Abdomen: Soft and nontender nondistended with normal bowel sounds. Extremities: Bilateral lower extremities are without edema. Skin: Well perfused without any obvious rashes. Strength is 5/5 of the upper and lower extremities. Reflexes are 2+ and symmetric at the knees. Cranial nerves 3-12 are normal. Bugdqe-ef-phym is normal. There is no nystagmus either horizontally or vertically. Gait is normal. Const: Vital Signs, click to edit/add: Vital Signs - 24 hr 01/03/25 16:23 Temperature 97.7 F Pulse Rate [Pulse Oximeter] 95 Respiratory Rate 18 Blood Pressure [Ri ght Upper Arm] 155/96 H Pulse Oximetry 100 Oxygen Delivery Me thod Room Air Course Course ED Course: Lab work, including carboxyhemoglobin were unremarkable. Given that there were no other reports of people feeling ill in the building today I would think that the risk of this being a carbon monoxide exposure would be very low. Vital Signs Vital signs: Initial Vital Signs Temperature 97.7 F 01/03/25 16:23 Temperature Source Temporal Artery Scan 01/03/25 16:23 Pulse Rate 95 01/03/25 16:23 Respiratory Rate 18 01/03/25 16:23 Blood Pressure 155/96 H 01/03/25 16:23 Blood Pressure Mean 115 H 01/03/25 16:23 Pulse Oximetry 100 01/03/25 16:23 Oxygen Delivery Method Room Air 01/03/25 16:23 Vital Signs Temperature 97.7 F 01/03/25 16:23 Pulse Rate 95 01/03/25 16:23 Respiratory Rate 18 01/03/25 16:23 Blood Pressure 155/96 H 01/03/25 16:23 Pulse Oximetry 100 01/03/25 16:23 Oxygen Delivery Method Room Air 01/03/25 16:23 Temperature 97.7 F 01/03/25 16:23 Pulse Rate 95 01/03/25 16:23 Respiratory Rate 18 01/03/25 16:23 Blood Pressure 155/96 H 01/03/25 16:23 Pulse Oximetry 100 01/03/25 16:23 Oxygen Delivery Method Room Air 01/03/25 16:23 Medical Decision Making MDM Narrative Medical decision making narrative: 34-year-old female feeling lightheaded. Workup unremarkable. Physical exam unremarkable. Discussed monitoring her symptoms at this time and returning if they get worse. Lab Data Lab results reviewed: Yes I reviewed the patient's lab results Labs: Lab Results 01/03/25 Range/Units 16:50 WBC 7.84 (4.50-11.00) K/uL RBC 4.39 (4.00-5.20) m/uL Hgb 13.6 (12.0-16.0) gm/dL Hct 39.9 (33.0-51.0) % MCV 91 (80-100) fL MCH 31 (26-34) pg MCHC 34 (32-36) gm/dL RDW Coeff of Branden 11.7 (11.5-15.5) % Plt Count 261 (140-440) K/uL Neut % (Auto) 65.9 (42.0-72.0) % Lymph % (Auto) 26.3 (20-44) % [place] % (Auto) 7.0 (0.0-11.0) % Eos % (Auto) 0.4 (0.0-7.0) % Baso % (Auto) 0.3 (0.0-3.0) % Neut # (Auto) 5.17 (1.7-7.0) K/uL Lymph # (Auto) 2.06 (0.90-2.90) K/uL [place] # (Auto) 0.50 (0.00-0.90) K/UL Eos # (Auto) 0.03 (0.00-0.50) K/uL Baso # (Auto) 0.02 (0.00-0.30) K/uL Abs Immat Gran (auto) 0.01 (0.00-0.30) K/uL Imm/Tot Granulo (auto) 0.1 % Carboxyhemoglobin 2.5 (0.0-5.0) % Sodium 139 (135-149) mmol/L Potassium 3.8 (3.6-5.1) mmol/L Chloride 104 (96-114) mmol/L Carbon Dioxide 22 (20-32) mmol/L Anion Gap 13 (7-15) mEq/L BUN 15 (5-24) mg/dL Creatinine 0.7 (0.5-1.5) mg/dL Estimated Creat Clear 89.56 Estimated GFR 116 ml/min Glucose 94 (60-115) mg/dL Calcium 10.1 (8.4-10.6) mg/dL Total Bilirubin 0.7 (0.1-1.5) mg/dL Direct Bilirubin 0.4 (0.0-0.5) mg/dL AST 29 (12-35) U/L ALT 26 (4-35) U/L Alkaline Phosphatase 78 (40-150) U/L Total Protein 8.6 H (6.0-8.3) g/dL Albumin 4.9 (3.3-5.0) g/dL HCG, Qual Negative (Negative) Discharge Plan Discharge Clinical Impression: Light-headed Patient Disposition: Home, Self-Care Condition: Stable Additional Instructions: Your blood work was normal today. Unclear what exactly it was that made you feel lightheaded today. Recommend returning to the emergency department if you start to feel worse. Prescriptions: No Action sertraline 25 mg tablet 25 mg PO QDAY amitriptyline 25 mg tablet 25 mg PO QDAY norethindrone-e.estradiol-iron 1-20(5)/1-30(7) /1mg-35mcg (9) tablet 1 tab PO DAILY Follow Up/Referrals: Candelaria Morgan MD [Primary Care Provider] - Stand Alone Forms: MyHealth Info Instructions
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
--- OUTSIDE RECORDS SUMMARY | 2025-01-03 16:47 | XMS_ITS | Clinical Summary ---
Author Organization [facility] Address [address] [place] [address] Care Team Providers Care Lawn Care Specialist Name Role Phone Elsewhere, Pcp Primary Care Provider Unavailabl e Source Comments Patient records contain information from all sites at [facility]. For routine questions regarding patient records, call [phone] during business hours, M-F 8:00 AM - 5:00 PM Central Time. Record requests for emergency care only can be directed to [phone] at any time.[facility] Allergies Active Allergy Reactions Criticality Noted Date [...] Date Smoking Tobacco: Never Smokeless Tobacco: Never [employer] Utilities Answer Date Recorded In the past 12 months has th e [employer], gas, oil, or water Affectv threatened to shut off services in your [...] your living situation today? I have a [facility] place to live 07/29/2024 Comments Unknown Sex and Gender Information Value Date Recorded Sex Assigned at Female 07/29/2024 7:29 PM SATELLITE MANAGER Legal Sex Female 9:31 PM SATELLITE MANAGER Gender Identity Female 07/29/2024 7:29 PM SATELLITE MANAGER Sexual Orientation Straight 07/29/2024 7: 29 PM SATELLITE MANAGER Last Filed Vital Signs Vital Sign Reading Time Taken Comments Blood Pressure 140/94 09/12/2024 5:34 PM SATELLITE MANAGER Pulse 71 09/12/2024 5:34 PM SATELLITE MANAGER Temperature 36.3 C (97.3 F) 09/12/2024 5:34 PM SATELLITE MANAGER Respiratory Rate 16 09/12/2024 5:34 PM SATELLITE MANAGER Oxygen Saturation 100% 09/12/2024 5:34 PM SATELLITE MANAGER Inhaled Oxygen Concentration - - Weight 83.2 kg (183 lb 6.8 oz) 07/26/2024 5:02 P M SATELLITE MANAGER Height 160 cm (5' 3) 09/12/2024 5:33 PM SATELLITE MANAGER Body Mass Index 31.48 08/23/2020 3:35 PM SATELLITE MANAGER Plan of Treatment Health Maintenance Due [...] Name Priority Date/Time Associated Diagnosis Comments PATHOLOGY SENIOR TECHNICAL ANALYST CYTOLOGY Routine 04/28/2016 12:00 AM CDT from Last 3 Months or Most Recently Relevant to Health Maintenance Results * Pathology SENIOR TECHNICAL ANALYST Cytology (04/28/2016 12:00 AM CDT) 04/28/2016 Narrative [facility] - 05/13/2016 11:34 AM CDT [facility] in [address] [place] [address] Patient Name: MATTIE MEJIACheryl CAMPOS Collected: 04/28/2016 Address: City/State/Zip: [address] [facility] [place] [id number] Received: Reported: 04/29/2016 05/13/2016 Soc. Sec. #: /Age/Sex 1990 (Age: 25) F Physician(s): BRIDGET MARINO MD Copy To: [facility] [id number] [address] [place] [address] CYTOPATHOLOGY SENIOR TECHNICAL ANALYST REPORT FINAL CYTOLOGIC DIAGNOSIS Pap Smear - ThinPrep: NEGATIVE FOR INTRAEPITHELIAL LESION OR MALIGNANCY SPARSE TO NO ENDOCERVICAL COMPONENT PRESENT. SATISFACTORY SPECIMEN FOR EVALUATION. Electronically Signed Out By 05/13/2016 DL [facility](ASCP) The Pap test is a screening procedure [...] LAB PAP COPATH ORDERABLES Fi nal Result [facility] from Last 3 Months or Most Recently Relevant to Health Maintenance Insurance [facility] Care Teams Lawn Care Specialist Relationship Specialty Start Date End Date Elsewhere, Pcp PCP - General Internal Medicine 12/29/21
--- OUTSIDE RECORDS SUMMARY | 2025-01-03 16:47 | XMS_ITS | Clinical Summary ---
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 Medications Medication Instructions Start Date Stop Date Generic Name NDC Provider LORAZEPAM 0.5 MG TABS lorazepam [id number] benjamin Monday AMOXICILLIN-POT CLAVULANATE 875-125 MG TABS amoxicillin-pot clavulanate [id number] benjamin Monday AMITRIPTYLINE HCL 25 MG TABS amitriptyline 77341930307 benjamin Monday DROSPIRENONE-ETHINYL ESTRADIOL 3-0.03 MG TABS drospirenone-eth inyl estradiol 67673181153 benjamin Monday CEFDINIR 300 MG CAPS cefdinir [id number] 0 Sondra Monday HYDROXYZINE HCL 25 MG TABS hydroxyzine hcl 44650735035 Sondra Monday SERTRALINE HCL 50 MG TABS sertraline 61280211031 benjamin Monday MEDROXYPROGESTERONE ACETATE 10 MG TABS medroxyprogesterone [id number] Sondra Monday norethindrone-eth. estradiol-iron 1-20 (5)/1-30(7)/1mg-35mc g(9) tablet norethindrone-e. estr adiol-iron [id number] Sondra Kan MD [id number] C 1 % SOLN neomycin-polymyx in-h c [phone] Sondra Monday Medications Administered No information available. [...] , blood NEUTRO COUNT 2582 CELLS/UL 10*3/mm3 8150-7130 N neutrophil count , blood MPV 10.8 [...] Procedures Code Procedure Name Date Entry Date 73596 EEG Ambulatory (50hr) [address] [id number] Documentation of current medicatio ns CPT-71294 EEG (AWAKE/DROWSY) (END) 202 01/04/12 [address] [place] [address] EEG (40min) [id number] MRI-Brain Seizure Protocol W/WO 1 CPT-N5549C ProHance Gadolinium- based MR Contrast - 15 ml vial CPT-41242 MRI Brain W/WO ORDERS CBC with Diff/Platelet [...]
[2025-01-03 16:59] LABS: Carboxyhemoglobin* 2.5 % (0.0-5.0)
[2025-01-03 17:18] LABS: Basophils Absolute Auto 0.02 K/uL (0.00-0.30); Basophils Percent Auto 0.3 % (0.0-3.0); Eosinophils Absolute Auto 0.03 K/uL (0.00-0.50); Eosinophils Percent Auto 0.4 % (0.0-7.0); Hematocrit 39.9 % (33.0-51.0); Hemoglobin* 13.6 gm/dL (12.0-16.0); Immature Granulocytes Abs Auto 0.01 K/uL (0.00-0.30); Immature Granulocytes Pct Auto 0.1 %; Lymphocytes Absolute Auto 2.06 K/uL (0.90-2.90); Lymphocytes Percent Auto 26.3 % (20-44); Mean Corpuscular HGB Conc 34 gm/dL (32-36); Mean Corpuscular Hemoglobin 31 pg (26-34); Mean Corpuscular Volume 91 fL (80-100); Neutrophils Absolute Auto 5.17 K/uL (1.7-7.0); Neutrophils Percent Auto 65.9 % (42.0-72.0); Platelet Count* 261 K/uL (140-440); RDW Coefficient of Variation % 11.7 % (11.5-15.5); Red Blood Count 4.39 m/uL (4.00-5.20); White Blood Count* 7.84 K/uL (4.50-11.00)
[2025-01-03 17:19] LABS: Slide Review Reflex No
[2025-01-03 17:32] LABS: Albumin* 4.9 g/dL (3.3-5.0); Chloride* 104 mmol/L (96-114); Sodium* 139 mmol/L (135-149)
[2025-01-03 17:33] LABS: Potassium* 3.8 mmol/L (3.6-5.1)
[2025-01-03 17:35] LABS: Alanine Aminotransferase* 26 U/L (4-35); Alkaline Phosphatase* 78 U/L (40-150); Anion Gap 13 mEq/L (7-15); Aspartate Amino Transferase* 29 U/L (12-35); Bilirubin Direct* 0.4 mg/dL (0.0-0.5); Bilirubin Total* 0.7 mg/dL (0.1-1.5); Blood Urea Nitrogen* 15 mg/dL (5-24); Carbon Dioxide* 22 mmol/L (20-32); Creatinine* 0.7 mg/dL (0.5-1.5); Est. Creatinine Clearance* 89.56; Estimated Glomerular Filt Rate 116 ml/min; Total Protein* 8.6 g/dL (6.0-8.3)
[2025-01-03 17:36] LABS: Calcium* 10.1 mg/dL (8.4-10.6); Glucose* 94 mg/dL (60-115)
[2025-01-03 17:58] LABS: HCG Qualitative Serum* Negative (Negative)
== END 2025-01-03 19:12 | disposition home or self-care (01) ==
PROVIDERS: Emergency Provider Family Medicine; PCP Family Medicine
DX: R42 Dizziness and giddiness (principal)
CPT/HCPCS: 36415; 80048; 80076; 82375; 84703; 85025; 99283; 99284